=== PATIENT | female | born 1950 | race Caucasian/White ===

== ENCOUNTER 2018-02-11 06:13 | Outpatient (CLI) | payer BC ==
[~2018-02-11] VITALS: Ht 157.5 cm; Wt 81.6 kg
[2018-02-11] MEDS ORDERED: CHOL100045 PO (15:15)
[2018-02-11] MEDS ORDERED: ATOR20TA66 PO (15:15)
[2018-02-11] MEDS ORDERED: ASPI-586 PO (15:15)
== END 2018-02-11 15:21 ==
LOC: PREOP 06:13
PROVIDERS: ATTEND Specialist
DX: Z01.818 Encounter for other preprocedural examination (principal); H25.89 Other age-related cataract

== ENCOUNTER 2018-02-18 08:29 | Day surgery (SDC) | payer BC ==
[~2018-02-18] VITALS: Ht 157.5 cm; Wt 81.6 kg
[~2018-02-18 08:29] MED LIST: ASPI-586 PO; ATOR20TA66 PO; CHOL100045 PO
[2018-02-18] MEDS ORDERED: TIMOLOL MALEATE 0.5% 5 ML (TIMOPTIC) BTL OU PRN (08:45)
[2018-02-18] MEDS ORDERED: EPINEPHrine INJECTION 1 MG/ML AMP INJ ONE (08:45)
[2018-02-18] MEDS ORDERED: POVIDONE (BETADINE) OPHTH SOLN 5% 30 ML OP ONE (08:45)
[2018-02-18] MEDS ORDERED: VANCOMYCIN/BSS (COMPOUNDED) 10 MG/ML SYR OP ONE (08:45)
[2018-02-18] MEDS ORDERED: MIDAZOLAM 2 MG/2 ML (VERSED) VIAL ONE (08:46)
[2018-02-18] MEDS ORDERED: LIDOCAINE PF 2% 5 ML (XYLOCAINE) VIAL ONE (08:52)
[2018-02-18] MEDS: TETRACAINE 0.5% OPHTH SOLN 4 ML BTL (SINGLE DOSE ONLY) OU PRN ×4 (08:54→09:09)
[2018-02-18 08:55] VITALS: BP 173/93
[2018-02-18] MEDS: PHENYLEPHRINE 10% OPHTH (NEO-SYN) 5 ML BTL OU SCH ×3 (08:59→09:09)
[2018-02-18] MEDS: CYCLOPENTOLATE 1% (CYCLOGYL) 2 ML DROPS OP SCH ×3 (08:59→09:09)
[2018-02-18] MEDS ORDERED: LIDOCAINE PF 1% 2 ML VIAL (OR ONLY) IR PRN (09:00)
--- NOTE | 2018-02-18 09:30 | Ophthalmologist Pre-Op Note ---
Pre-Operative Progress Note H&P Reviewed The H&P was reviewed, patient examined and no changes noted. Date H&P Reviewed: Feb 18, 2018 Time H&P Reviewed: 09:30 Pre-Op Dx Cataract, Right Eye SARAH TAN MD Feb 18, 2018 09:30
--- NOTE | 2018-02-18 09:57 | Ophthalmology Operative Report ---
Cataract removal/placement IOL PREOPERATIVE DIAGNOSIS: Cataract Right Eye POSTOPERATIVE DIAGNOSIS: Cataract Right Eye PROCEDURE: Cataract removal and placement of posterior chamber implant, right eye SURGEON: Baltazar Tan ANESTHESIA: Topical with sedation COMPLICATIONS: None ESTIMATED BLOOD LOSS: Minimal DESCRIPTION OF PROCEDURE: After proper informed consent was obtained, the patient, a 67 female, was taken to the Operating Room and the right eye was anesthetized with tetracaine. They right eye was then prepped and draped in the usual manner. A wire lid speculum was placed. A paracentesis was made at the left hand position. Preservative free lidocaine was injected into the anterior chamber followed by viscoelastic. A clear corneal incision was made in the temporal position. A capsulorrhexis was preformed and the central nuclear and cortical material were removed. The posterior capsule was polished and Syd 18.0 SN6CWS IOL was placed into the capsular bag. The residual viscoelastic was aspirated and balanced saline solution was injected into the anterior chamber. 1.0 ml of Vancomycin (10mg/ 1.0ml) was injected into the anterior chamber. The would was checked and found to be water tight. The patient tolerated the procedure well without complications. BALTAZAR TAN MD Feb 18, 2018 09:57
[2018-02-18 10:05] VITALS: BP 176/76
--- NOTE | 2018-02-18 14:24 | Anesthesia-General Post-Op ---
MAC Patient Condition Mental Status/LOC: Same as Preop Cardiovascular: Satisfactory Nausea/Vomiting: Absent Respiratory: Satisfactory Pain: Controlled Complications: Absent Post Op Complications Complications None Follow Up Care/Instructions Patient Instructions None needed. Anesthesiology Discharge Order Discharge Order Patient is doing well, no complaints, stable vital signs, no apparent adverse anesthesia problems. No complications reported per nursing. CHRISTIE LARA CRNA Feb 18, 2018 14:24
== END 2018-02-18 10:10 | disposition home or self-care (01) ==
LOC: SDC 08:29
PROVIDERS: ATTEND Specialist
DX: H26.9 Unspecified cataract (principal); Z79.82 Long term (current) use of aspirin

== ENCOUNTER 2018-03-08 05:31 | Outpatient (CLI) | payer BC ==
[~2018-03-08] VITALS: Ht 157.5 cm; Wt 81.6 kg
== END 2018-03-08 09:57 ==
LOC: PREOP 05:31
PROVIDERS: ATTEND Specialist
DX: Z01.818 Encounter for other preprocedural examination (principal); H25.12 Age-related nuclear cataract, left eye

== ENCOUNTER 2018-03-11 08:24 | Day surgery (SDC) | payer BC ==
[~2018-03-11] VITALS: Ht 157.5 cm; Wt 81.6 kg
[2018-03-11] MEDS ORDERED: VANCOMYCIN/BSS (COMPOUNDED) 10 MG/ML SYR OP ONE (08:45)
[2018-03-11] MEDS ORDERED: EPINEPHrine INJECTION 1 MG/ML AMP INJ ONE (08:45)
[2018-03-11] MEDS ORDERED: TIMOLOL MALEATE 0.5% 5 ML (TIMOPTIC) BTL OU PRN (08:45)
[2018-03-11] MEDS ORDERED: LIDOCAINE PF 1% 2 ML AMP IR PRN (08:45)
[2018-03-11] MEDS ORDERED: POVIDONE (BETADINE) OPHTH SOLN 5% 30 ML OP ONE (08:45)
[2018-03-11] MEDS: TETRACAINE 0.5% OPHTH SOLN 4 ML BTL (SINGLE DOSE ONLY) OU PRN ×4 (08:57→09:15)
[2018-03-11 09:03] VITALS: BP 193/102
[2018-03-11] MEDS: PHENYLEPHRINE 10% OPHTH (NEO-SYN) 5 ML BTL OU SCH ×3 (09:05→09:15)
[2018-03-11] MEDS: CYCLOPENTOLATE 1% (CYCLOGYL) 2 ML DROPS OP SCH ×3 (09:05→09:15)
[2018-03-11] MEDS ORDERED: MIDAZOLAM 2 MG/2 ML (VERSED) VIAL ONE (09:30)
--- NOTE | 2018-03-11 09:45 | Ophthalmologist Pre-Op Note ---
Pre-Operative Progress Note H&P Reviewed The H&P was reviewed, patient examined and no changes noted. Date H&P Reviewed: Mar 11, 2018 Time H&P Reviewed: 09:45 Pre-Op Dx Cataract, Left Eye SARAH TAN MD Mar 11, 2018 09:45
[2018-03-11] MEDS ORDERED: LABETALOL HCL 20 MG/4 ML VIAL ONE (09:57)
[2018-03-11 10:10] VITALS: BP 182/86
--- NOTE | 2018-03-11 10:10 | Ophthalmology Operative Report ---
Cataract removal/placement IOL PREOPERATIVE DIAGNOSIS: Cataract Left Eye POSTOPERATIVE DIAGNOSIS: Cataract Left Eye PROCEDURE: Cataract removal and placement of posterior chamber implant, left eye SURGEON: Baltazar Tan ANESTHESIA: Topical with sedation COMPLICATIONS: None ESTIMATED BLOOD LOSS: Minimal DESCRIPTION OF PROCEDURE: After proper informed consent was obtained, the patient, a 67 female, was taken to the Operating Room and the left eye was anesthetized with tetracaine. They left eye was then prepped and draped in the usual manner. A wire lid speculum was placed. A paracentesis was made at the left hand position. Preservative free lidocaine was injected into the anterior chamber followed by viscoelastic. A clear corneal incision was made in the temporal position. A capsulorrhexis was preformed and the central nuclear and cortical material were removed. The posterior capsule was polished and Syd 18.5 SN6CWS IOL was placed into the capsular bag. The residual viscoelastic was aspirated and balanced saline solution was injected into the anterior chamber. 1.0 mg of Vancomycin (10mg/ 1.0ml) was injected into the anterior chamber. The would was checked and found to be water tight. The patient tolerated the procedure well without complications. BALTAZAR TAN MD Mar 11, 2018 10:10
--- NOTE | 2018-03-11 11:44 | Anesthesia-General Post-Op ---
MAC Patient Condition Mental Status/LOC: Same as Preop Cardiovascular: Satisfactory Nausea/Vomiting: Absent Respiratory: Satisfactory Pain: Controlled Complications: Absent Post Op Complications Complications None Follow Up Care/Instructions Patient Instructions None needed. Anesthesiology Discharge Order Discharge Order Patient is doing well, no complaints, stable vital signs, no apparent adverse anesthesia problems. No complications reported per nursing. EBEN CARROLL CRNA Mar 11, 2018 11:44
--- OUTSIDE RECORDS SUMMARY | 2018-03-13 06:59 | XMS REPORT | Continuity of Care Document ---
Author Author [facility] Address Unknown Phone Unavailable Allergies There is no data. Medications There is no data. Problems Date Dx Coded Attending Type Code Diagnosis Diagnosed By 10/06/2013 ROSENDA ENGLAND APRN V06.1 TDAP DX Procedures There is no data. Results There is no data. Encounters ACCT No. Visit Date/Time Discharge Status Pt. Type Provider Facility Loc./Unit Complaint [id number] 10/06/2013 15:49:00 10/06/2013 23:59:59 CLS Outpatient ROSENDA ENGLAND APRN [id number] 01/05/2013 15:16:59 RECURRING
== END 2018-03-11 10:20 | disposition home or self-care (01) ==
LOC: SDC 08:24
PROVIDERS: ATTEND Specialist
DX: H26.9 Unspecified cataract (principal); E78.00 Pure hypercholesterolemia, unspecified; Z79.82 Long term (current) use of aspirin; Z79.899 Other long term (current) drug therapy

== ENCOUNTER → 2022-06-05 | Outpatient (CLI) | payer BC | LOC: CARD 10:54 | PROVIDERS: ATTEND Nurse Practitioner Family | DX: R00.0 Tachycardia, unspecified (principal) | CPT/HCPCS: 93005 ==